=== PATIENT | female | born 1960 | race Caucasian/White ===

== ENCOUNTER 2018-05-11 11:30 | Emergency (ER) | payer OTHER ==
[~2018-05-11] VITALS: Ht 157.5 cm; Wt 65.9 kg
[2018-05-11 11:40] VITALS: BP 128/67; TEMP 98.4
[2018-05-11 13:50] VITALS: PULSE 67
== END 2018-05-11 13:50 | disposition home or self-care (01) ==
LOC: COL.ER 11:30
DX: S61.011A Laceration without foreign body of right thumb without damage to nail, initial encounter (principal); Z90.710 Acquired absence of both cervix and uterus; Z90.89 Acquired absence of other organs; Z23 Encounter for immunization; W23.0XXA Caught, crushed, jammed, or pinched between moving objects, initial encounter; Y92.009 Unspecified place in unspecified non-institutional (private) residence as the place of occurrence of the external cause

== ENCOUNTER → 2018-05-20 | Emergency (ER) | payer OTHER ==
[2018-05-20 07:57] VITALS: BP 125/84; PULSE 75; TEMP 98.6
== END ==
LOC: COL.ER 07:52
DX: S61.011D Laceration without foreign body of right thumb without damage to nail, subsequent encounter (principal); X58.XXXD Exposure to other specified factors, subsequent encounter